=== PATIENT | female | born 1985 | race Hispanic/Latino ===

== ENCOUNTER 2017-11-23 00:29 | Emergency (ER) | payer OTHER | END 2017-11-23 01:12 | disposition home or self-care (01) | LOC: EDH 00:29 | DX: J11.1 Influenza due to unidentified influenza virus with other respiratory manifestations (principal); H92.09 Otalgia, unspecified ear ==

== ENCOUNTER 2018-12-23 06:03 | Day surgery (SDC) | payer MEDICAID ==
[2018-12-22 15:50] VITALS: BP 106/76
[2018-12-22 16:09] LABS: BASOPHILS % (AUTO) 0.4 % (0.0-5.0); EOSINOPHILS % (AUTO) 3.6 % (0.0-8.0); HEMATOCRIT 36.1 % (36-48); LYMPHOCYTES % (AUTO) 27.4 % (21.0-51.0); MEAN CORPUSCULAR HEMOGLOBIN 28.3 pg (27.0-33.0); MEAN CORPUSCULAR HGB CONC 33.6 g/dL (32.0-36.0); MEAN CORPUSCULAR VOLUME 84.2 fL (79-99); MONOCYTES % (AUTO) 7.7 % (3.0-13.0); NEUTROPHILS % (AUTO) 60.9 % (40.0-77.0); NUCLEATED RED BLOOD CELLS 0.1 % (0.0-0.19); PLATELET COUNT (AUTO) 234 K/uL (130-400); RED BLOOD CELL COUNT(AUTO) 4.29 MIL/uL (4.00-5.50); RED CELL DISTRIBUTION WIDTH 12.4 % (11.0-15.5); WHITE BLOOD COUNT (AUTO) 5.2 K/uL (4.8-10.8)
[~2018-12-23] VITALS: Ht 160 cm; Wt 92.7 kg
[2018-12-23] VITALS (15 sets, daily range): BP systolic 106–134; BP diastolic 60–94
[2018-12-23] MEDS: LACTATED RINGERS 1000ML 1,000 ML IV SCH ×2 (07:13→08:33)
[2018-12-23] MEDS ORDERED: MIDAZOLAM HCL 1 MG/ML 2ML VIAL ONE (07:38)
[2018-12-23] MEDS ORDERED: LIDOCAINE PF 2% 5ML ABBOJECT ONE (07:43)
[2018-12-23] MEDS ORDERED: FENTANYL CITRATE PF 50 MCG/1 ML 2ML VIAL ONE (07:43)
[2018-12-23] MEDS ORDERED: SUCCINYLCHOLINE 200MG/10ML SYR ONE (07:43)
[2018-12-23] MEDS ORDERED: PROPOFOL 10 MG/ML 20ML VIAL IV ONE (07:43)
[2018-12-23] MEDS ORDERED: ROCURONIUM 10MG/1ML SYR 10 MG/ML ML ONE (07:51)
[2018-12-23] MEDS ORDERED: KETOROLAC TROMETHAMINE 30MG/ML ONE (08:08)
[2018-12-23] MEDS ORDERED: GLYCOPYRROLATE 1 MG/5 ML SYRINGE ONE (08:09)
[2018-12-23] MEDS ORDERED: NEOSTIGMINE 5MG/5ML SYR IV ONE (08:09)
[2018-12-23] MEDS ORDERED: ONDANSETRON HCL 4 MG/2 ML VIAL ONE (08:09)
== END 2018-12-23 10:31 | disposition home or self-care (01) ==
LOC: DAH 06:03
PROVIDERS: ATTEND Obstetrics & Gynecology
DX: Z30.2 Encounter for sterilization (principal); Z79.899 Other long term (current) drug therapy; Z98.890 Other specified postprocedural states; Z82.49 Family history of ischemic heart disease and other diseases of the circulatory system; Z83.3 Family history of diabetes mellitus
CPT/HCPCS: 36415; 58670; 84703; 85025; 86850; 86900; 86901; A4215 ×2; A4221; A4222; A4223; A4351; A4452; A4606; A4663; A6260; C1769 ×2; J0330; J2001; J2250; J2405; J2704; J2710; J3010; J3490; J7030; J7120; J1885

== ENCOUNTER 2018-12-31 16:21 | Emergency (ER) | payer MEDICAID ==
[2018-12-31] MEDS ORDERED: OCTYL 2-CYANOACRYLATE 1 EACH TP ONE (16:38)
[2018-12-31] MEDS ORDERED: TETANUS/DIPHTHERIA TOXOID [ADULT] 0.5 ML VIAL IM ONE (17:02)
== END 2018-12-31 17:27 | disposition home or self-care (01) ==
LOC: EDH 16:21
DX: S61.216A Laceration without foreign body of right little finger without damage to nail, initial encounter (principal); Z91.041 Radiographic dye allergy status; W25.XXXA Contact with sharp glass, initial encounter; Y93.89 Activity, other specified; Y92.098 Other place in other non-institutional residence as the place of occurrence of the external cause; Y99.8 Other external cause status
CPT/HCPCS: 12001; 90471; 90714